=== PATIENT | female | born 1975 | race Caucasian/White ===

== ENCOUNTER 2017-02-02 17:26 | Emergency (ER) | payer MEDICARE ==
[~2017-02-02] VITALS: Ht 157.5 cm; Wt 77.3 kg
[~2017-02-02 17:26] MED LIST: ASPIRIN 32325 MG/TA1 PO; ASPIRIN 32325 MG/TAB; ATIVAN 0.50.5 MG/TAB; ATIVAN 0.50.5 MG/TAB PO; ATIVAN 1MG T1 MG/TAB PO; BIOTIN5 MG PO; CARAFATE 1GM1 G PO; CIPRO 500MG TA500 MG PO; COGENTIN .0.5 MG/TAB; CORTEF 10MG TAB10 MG PO; CORTEF 20MG TAB20 MG PO; CORTEF5 MG PO; CREON 60000 U-11 ECC PO; DIAZEPAM5 MG PO; DILAUDID 2MG TAB2 MG PO; DILAUDID 4MG TAB4 MG PO; DOXYCYCLINE 50M50 MG PO; ERY-TAB250 MG PO; FISH OIL1000 MG PO; FLAGYL500 MG PO; HALDOL 2MG T2 MG/TAB; HCTZ 25MG TAB25 MG PO; IRON325 M1 PO; L-LYSINE500 MG PO; LEVSIN ORA0.125 MG/M PO; LIDODERM 5% PATC1 EA TP; MORPHINE 1515 MG/TAB PO; MULTIPLE VITAMI1 CAP PO; MULTIVITAMIN FO1 CAP PO; NEXIUM 20MG20 MG PO; NIACIN100 MG PO; NORCO 325 MG-51 TAB PO; OXY IR5 MG PO; PAXIL 10MG10 MG PO; PAXIL 20MG20 MG; PAXIL 20MG20 MG PO; PAXIL 30MG30 MG PO; PERC2.5TAB; PERCOCET 325 MG1 TA2 PO; PERCOCET 325 MG1 TA3 PO; PERCR 7.5 PO; PHENERGAN 25 TA25 MG PO; PHENERGAN25 MG RC; PREDNISONE1 MG PO; PREDNISONE20 MG PO; PROTONIX 40MG T40 MG PO; PROTONIX20 MG PO; RITE AID BIO2500 MCG PO; SINGULAIR 110 MG/TAB PO; ULTRAM 50MG TAB50 MG PO; VALIUM 5MG T5 MG/TAB PO; VITAMIN B COMPL1 SGL PO; VITAMIN B COMPL1 T16 PO; VITAMIN B COMPL1 TA1 PO; VITAMIN D 50,1.25 MG PO; WESTCORT0.21 TP; ZANTAC 150MG T150 MG PO; ZOFRAN 4MG T4 MG/TAB PO; ZOFRAN ODT4 MG PO; ZOFRAN8 MG PO; [UNRECOGNIZED DRUG - CODE] PO
[2017-02-02 17:34] VITALS: TEMP 98.8
[2017-02-02 18:20] LABS: BASO # 0.1 (0.0-0.2); BASO % 0.9 % (0.0-2.0); EOS # 0.3 (0.0-0.7); EOS % 4.3 % (0-4.0); GRAN # 3.6 (1.4-6.5); GRAN % 53.3 % (42.2-75.2); HEMATOCRIT 37.9 % (37.0-47.0); HEMOGLOBIN 12.2 g/dl (12.5-16.0); LYMPH # 2.1 (1.2-3.4); LYMPH % 30.7 % (20.0-51.0); MEAN CELL VOLUME 83 fl (80.0-100.0); MEAN CORPUSCULAR HEMOGLOBIN 27 pg (27.0-31.0); MEAN CORPUSCULAR HGB CONC 32 g/dl (33.0-37.0); MEAN PLATELET VOLUME 10.1 fl (7.4-10.4); MONO # 0.7 (0.1-0.6); MONO % 10.5 % (1.7-9.3); PLATELET COUNT 328 K/mm3 (130-400); RED BLOOD COUNT 4.57 M/mm3 (4.10-5.30); REDCELL DISTRIBUTION WIDTH-CV 15.8 % (11.5-14.5); WHITE BLOOD COUNT 6.8 K/mm3 (4.8-10.8)
[2017-02-02 18:31] LABS: ADJUSTED CALCIUM 9.3 mg/dL (8.4-10.2); ALBUMIN 4.2 gm/dL (3.5-5.0); BILIRUBIN,TOTAL 0.6 mg/dL (0.0-1.0); CALCIUM 9.5 mg/dL (8.4-10.2); CREATININE, serum 0.78 mg/dL (0.52-1.25); POTASSIUM 3.9 mmol/L (3.4-5.0); TOTAL PROTEIN 7.7 gm/dL (6.4-8.2)
[2017-02-02] MEDS ORDERED: CREON 36000 PO (18:32)
[2017-02-02] MEDS ORDERED: ATIVAN 0.50.5 MG/TAB PO (18:33)
[2017-02-02] MEDS ORDERED: ZYPREXA10 MG PO (18:33)
[2017-02-02] MEDS ORDERED: PERCOCET 325 MG1 TA2 PO (19:55)
[2017-02-02 20:02] VITALS: BP 106/62; PULSE 88
== END 2017-02-02 20:08 | disposition home or self-care (01) ==
LOC: COL.ER 17:26
PROVIDERS: Emergency Medicine
DX: R10.13 Epigastric pain (principal); G89.29 Other chronic pain
CPT/HCPCS: J2765; J3010; J7030

== ENCOUNTER 2017-02-24 18:56 | Emergency (ER) | payer MEDICARE ==
[~2017-02-24] VITALS: Ht 157.5 cm; Wt 77.3 kg
[~2017-02-24 18:56] MED LIST changes: +CREON 36000 PO; +ZYPREXA10 MG PO
[2017-02-24 18:58] VITALS: BP 125/68; PULSE 102; TEMP 99.5
== END 2017-02-24 20:09 | disposition left against medical advice (07) ==
LOC: COL.ER 18:56
DX: R10.12 Left upper quadrant pain (principal); Z53.21 Procedure and treatment not carried out due to patient leaving prior to being seen by health care provider

== ENCOUNTER 2017-03-09 14:50 | Emergency (ER) | payer MEDICARE ==
[~2017-03-09] VITALS: Ht 157.5 cm; Wt 77.3 kg
[2017-03-09 14:55] VITALS: TEMP 99.2
[2017-03-09 15:37] LABS: BASO # 0.1 (0.0-0.2); BASO % 1.1 % (0.0-2.0); EOS # 0.1 (0.0-0.7); EOS % 1.3 % (0-4.0); GRAN # 5.2 (1.4-6.5); GRAN % 66.2 % (42.2-75.2); HEMATOCRIT 41.1 % (37.0-47.0); HEMOGLOBIN 13.1 g/dl (12.5-16.0); LYMPH # 1.9 (1.2-3.4); LYMPH % 24.4 % (20.0-51.0); MEAN CELL VOLUME 84 fl (80.0-100.0); MEAN CORPUSCULAR HEMOGLOBIN 27 pg (27.0-31.0); MEAN CORPUSCULAR HGB CONC 32 g/dl (33.0-37.0); MEAN PLATELET VOLUME 10.5 fl (7.4-10.4); MONO # 0.5 (0.1-0.6); MONO % 6.9 % (1.7-9.3); PLATELET COUNT 299 K/mm3 (130-400); RED BLOOD COUNT 4.87 M/mm3 (4.10-5.30); REDCELL DISTRIBUTION WIDTH-CV 15.5 % (11.5-14.5); WHITE BLOOD COUNT 7.9 K/mm3 (4.8-10.8)
[2017-03-09 15:47] LABS: ALBUMIN 4.8 gm/dL (3.5-5.0); BILIRUBIN,TOTAL 0.7 mg/dL (0.0-1.0); CALCIUM 9.6 mg/dL (8.4-10.2); CREATININE, serum 0.89 mg/dL (0.52-1.25); POTASSIUM 3.9 mmol/L (3.4-5.0); TOTAL PROTEIN 8.3 gm/dL (6.4-8.2)
[2017-03-09 15:52] LABS: PH 5 (5-8); SQUAMOUS EPITHELIAL 0-2 /hpf; URINE APPEARANCE Cloudy; URINE BACTERIA Rare /hpf; URINE BILIRUBIN Negative (NEGATIVE); URINE BLOOD Negative (NEGATIVE); URINE COLOR Amber; URINE GLUCOSE Negative (NEGATIVE); URINE KETONE Negative (NEGATIVE); URINE UROBILINOGEN Negative (NEGATIVE); URINE WBC 0-2 /hpf
[2017-03-09] MEDS ORDERED: NORCO 325 MG-51 TAB PO (16:24)
[2017-03-09] MEDS ORDERED: PHENERGAN 25 TA25 MG PO (16:24)
[2017-03-09 17:05] VITALS: BP 118/78; PULSE 89
== END 2017-03-09 17:05 | disposition home or self-care (01) ==
LOC: COL.ER 14:50
PROVIDERS: Physician Assistant
DX: K86.1 Other chronic pancreatitis (principal); F32.9 Major depressive disorder, single episode, unspecified; R79.89 Other specified abnormal findings of blood chemistry; R11.0 Nausea
CPT/HCPCS: J2270; J2550; J7030

== ENCOUNTER 2017-03-22 08:38 | Emergency (ER) | payer MEDICARE ==
[~2017-03-22] VITALS: Ht 157.5 cm; Wt 77.3 kg
[2017-03-22 08:42] VITALS: TEMP 99.2
[2017-03-22 09:28] LABS: ALANINE AMINOTRANSFERASE 87 U/L (9-52); ALBUMIN 4.5 gm/dL (3.5-5.0); ALKALINE PHOSPHATASE 143 U/L (50-136); AMYLASE 88 U/L (30-110); ANION GAP 13 mmol/L (7-16); BILIRUBIN,TOTAL 0.5 mg/dL (0.0-1.0); BLOOD UREA NITROGEN 12 mg/dL (7-17); CALCIUM 9.4 mg/dL (8.4-10.2); CARBON DIOXIDE 23 mmol/L (22-30); CHLORIDE 106 mmol/L (98-107); CREATININE, serum 0.87 mg/dL (0.52-1.25); GLUCOSE 98 mg/dL (74-106); LIPASE 46 U/L (23-300); POTASSIUM 3.9 mmol/L (3.4-5.0); SODIUM 141 mmol/L (137-145); TOTAL PROTEIN 7.7 gm/dL (6.4-8.2)
[2017-03-22 09:29] LABS: C-REACTIVE PROTEIN < 0.5 mg/dL (0.0-0.9)
[2017-03-22 09:33] LABS: BASO # 0.1 (0.0-0.2); BASO % 1.1 % (0.0-2.0); EOS # 0.2 (0.0-0.7); EOS % 2.3 % (0-4.0); GRAN # 4.3 (1.4-6.5); GRAN % 65.3 % (42.2-75.2); HEMOGLOBIN 12.8 g/dl (12.5-16.0); LYMPH # 1.6 (1.2-3.4); MEAN CELL VOLUME 86 fl (80.0-100.0); MEAN CORPUSCULAR HEMOGLOBIN 27 pg (27.0-31.0); MEAN CORPUSCULAR HGB CONC 32 g/dl (33.0-37.0); MEAN PLATELET VOLUME 11.4 fl (7.4-10.4); MONO # 0.4 (0.1-0.6); PLATELET COUNT 288 K/mm3 (130-400); RED BLOOD COUNT 4.67 M/mm3 (4.10-5.30); REDCELL DISTRIBUTION WIDTH-CV 15.6 % (11.5-14.5); WHITE BLOOD COUNT 6.5 K/mm3 (4.8-10.8)
[2017-03-22 09:48] LABS: ACETAMINOPHEN < 10 ug/mL (10-30)
[2017-03-22] MEDS ORDERED: NORCO 325 MG-51 TAB PO (10:28)
[2017-03-22 11:23] VITALS: BP 107/48; PULSE 66
== END 2017-03-22 11:25 | disposition home or self-care (01) ==
LOC: COL.ER 08:38
PROVIDERS: Physician Assistant
DX: K86.1 Other chronic pancreatitis (principal)
CPT/HCPCS: J2270; J2405; J7030

== ENCOUNTER 2017-08-18 04:13 | Emergency (ER) | payer MEDICARE ==
[~2017-08-18] VITALS: Ht 160 cm; Wt 80.9 kg
[2017-08-18 06:02] LABS: BASO # 0.1 (0.0-0.2); BASO % 1.4 % (0.0-2.0); EOS # 0.1 (0.0-0.7); EOS % 2.2 % (0-4.0); GRAN # 3.2 (1.4-6.5); GRAN % 54.2 % (42.2-75.2); HEMATOCRIT 39.5 % (37.0-47.0); LYMPH % 33.6 % (20.0-51.0); MEAN CELL VOLUME 87 fl (80.0-100.0); MEAN CORPUSCULAR HEMOGLOBIN 29 pg (27.0-31.0); MEAN CORPUSCULAR HGB CONC 33 g/dl (33.0-37.0); MEAN PLATELET VOLUME 11.6 fl (7.4-10.4); MONO # 0.5 (0.1-0.6); MONO % 8.4 % (1.7-9.3); PLATELET COUNT 275 K/mm3 (130-400); RED BLOOD COUNT 4.52 M/mm3 (4.10-5.30); REDCELL DISTRIBUTION WIDTH-CV 13.2 % (11.5-14.5); WHITE BLOOD COUNT 5.8 K/mm3 (4.8-10.8)
[2017-08-18 06:11] LABS: ADJUSTED CALCIUM 8.9 mg/dL (8.4-10.2); ALBUMIN 4.5 gm/dL (3.5-5.0); BILIRUBIN,TOTAL 0.7 mg/dL (0.0-1.0); CALCIUM 9.3 mg/dL (8.4-10.2); CREATININE, serum 0.81 mg/dL (0.52-1.25); POTASSIUM 3.6 mmol/L (3.4-5.0); TOTAL PROTEIN 8.1 gm/dL (6.4-8.2)
[2017-08-18 06:59] LABS: PH 6 (5-8); SQUAMOUS EPITHELIAL None Seen /hpf; URINE APPEARANCE Clear; URINE BACTERIA None Seen /hpf; URINE BILIRUBIN Negative (NEGATIVE); URINE BLOOD 1+ (NEGATIVE); URINE COLOR Colorless; URINE GLUCOSE Negative (NEGATIVE); URINE KETONE Negative (NEGATIVE); URINE RBC 0-2 /hpf; URINE UROBILINOGEN Negative (NEGATIVE); URINE WBC 0-2 /hpf
[2017-08-18] MEDS ORDERED: NORCO 325 MG-51 TAB PO (07:30)
[2017-08-18] MEDS ORDERED: PHENERGAN 25 TA25 MG PO (07:30)
[2017-08-18] MEDS ORDERED: PHENERGAN25 MG RC (09:20)
[2017-08-18] MEDS ORDERED: ZOFRAN ODT4 MG PO (09:20)
[2017-08-18] MEDS ORDERED: PERCOCET 325 MG1 TA2 PO (09:30)
[2017-08-18 09:42] VITALS: BP 101/59; PULSE 59
== END 2017-08-18 09:42 | disposition home or self-care (01) ==
LOC: COL.ER 04:13
PROVIDERS: Emergency Medicine
DX: K86.1 Other chronic pancreatitis (principal); Z90.49 Acquired absence of other specified parts of digestive tract
CPT/HCPCS: J1170; J2550; J7030

== ENCOUNTER 2017-08-28 18:55 | Emergency (ER) | payer MEDICARE ==
[~2017-08-28] VITALS: Ht 157.5 cm; Wt 70.5 kg
[2017-08-28 18:58] VITALS: TEMP 99
[2017-08-28 19:45] LABS: BASO # 0.1 (0.0-0.2); BASO % 1.2 % (0.0-2.0); EOS # 0.1 (0.0-0.7); EOS % 1.4 % (0-4.0); GRAN # 3.1 (1.4-6.5); GRAN % 54.2 % (42.2-75.2); HEMATOCRIT 39.8 % (37.0-47.0); HEMOGLOBIN 13.1 g/dl (12.5-16.0); LYMPH # 1.8 (1.2-3.4); LYMPH % 31.7 % (20.0-51.0); MEAN CELL VOLUME 88 fl (80.0-100.0); MEAN CORPUSCULAR HEMOGLOBIN 29 pg (27.0-31.0); MEAN CORPUSCULAR HGB CONC 33 g/dl (33.0-37.0); MEAN PLATELET VOLUME 11.3 fl (7.4-10.4); MONO # 0.6 (0.1-0.6); MONO % 11.3 % (1.7-9.3); PLATELET COUNT 294 K/mm3 (130-400); WHITE BLOOD COUNT 5.7 K/mm3 (4.8-10.8)
[2017-08-28 19:59] LABS: COLLECTION METHOD CLEAN CATCH
[2017-08-28 20:03] LABS: ADJUSTED CALCIUM 9.3 mg/dL (8.4-10.2); ALANINE AMINOTRANSFERASE 49 U/L (9-52); ALBUMIN 4.6 gm/dL (3.5-5.0); ALKALINE PHOSPHATASE 132 U/L (50-136); ANION GAP 12 mmol/L (7-16); BILIRUBIN,TOTAL 1.1 mg/dL (0.0-1.0); BLOOD UREA NITROGEN 8 mg/dL (7-17); CALCIUM 9.8 mg/dL (8.4-10.2); CARBON DIOXIDE 22 mmol/L (22-30); CHLORIDE 105 mmol/L (98-107); CREATININE, serum 0.83 mg/dL (0.52-1.25); GLUCOSE 86 mg/dL (74-106); LIPASE 181 U/L (23-300); POTASSIUM 3.8 mmol/L (3.4-5.0); SODIUM 139 mmol/L (137-145)
[2017-08-28 20:04] LABS: MUCOUS Present /lpf; PH 5 (5-8); URINE APPEARANCE Clear; URINE BACTERIA None Seen /hpf; URINE BILIRUBIN Negative (NEGATIVE); URINE BLOOD Negative (NEGATIVE); URINE COLOR Yellow; URINE GLUCOSE Negative (NEGATIVE); URINE KETONE Trace (NEGATIVE); URINE LEUKOCYTE ESTERASE Negative (NEGATIVE); URINE PROTEIN(semi-quant) Negative (NEGATIVE); URINE RBC 0-2 /hpf; URINE UROBILINOGEN Negative (NEGATIVE)
[2017-08-28 20:32] LABS: AMPHETAMINE URINE NEGATIVE; BARBITURATES URINE NEGATIVE; BENZODIAZEPINES URINE NEGATIVE; BUPRENORPHINE URINE NEGATIVE; METHADONE URINE NEGATIVE; OPIATES URINE NEGATIVE; OXYCODONE URINE NEGATIVE; PHENCYCLIDINE URINE NEGATIVE; PROPOXYPHENE URINE NEGATIVE; THC CANNABINOIDS URINE POSITIVE; TRICYCLIC ANTIDEPRESS URINE NEGATIVE
[2017-08-28 20:33] LABS: ACETAMINOPHEN < 10 ug/mL (10-30); ALCOHOL(ethanol),MEDICAL < 10 mg/dL
[2017-08-28 23:49] VITALS: BP 101/52; PULSE 66
== END 2017-08-28 23:50 | disposition home or self-care (01) ==
LOC: COL.ER 18:55
PROVIDERS: Emergency Medicine
DX: F22 Delusional disorders (principal); R10.12 Left upper quadrant pain; F31.9 Bipolar disorder, unspecified; F43.10 Post-traumatic stress disorder, unspecified; F29 Unspecified psychosis not due to a substance or known physiological condition; Z87.19 Personal history of other diseases of the digestive system
CPT/HCPCS: J1885; J2405; J7030

== ENCOUNTER 2017-08-30 02:26 | Observation (INO) | payer MEDICARE ==
[~2017-08-30] VITALS: Ht 157.5 cm; Wt 71.4 kg
[2017-08-30 02:58] LABS: PH 6 (5-8); SQUAMOUS EPITHELIAL 0-2 /hpf; URINE APPEARANCE Clear; URINE BACTERIA None Seen /hpf; URINE BILIRUBIN Negative (NEGATIVE); URINE BLOOD 1+ (NEGATIVE); URINE COLOR Straw; URINE GLUCOSE Negative (NEGATIVE); URINE KETONE Negative (NEGATIVE); URINE RBC 0-2 /hpf; URINE UROBILINOGEN Negative (NEGATIVE); URINE WBC 0-2 /hpf
[2017-08-30 03:06] LABS: AMPHETAMINE URINE NEGATIVE; BARBITURATES URINE NEGATIVE; BENZODIAZEPINES URINE NEGATIVE; BUPRENORPHINE URINE NEGATIVE; METHADONE URINE NEGATIVE; OPIATES URINE NEGATIVE; OXYCODONE URINE NEGATIVE; PHENCYCLIDINE URINE NEGATIVE; PROPOXYPHENE URINE NEGATIVE; THC CANNABINOIDS URINE POSITIVE
[2017-08-30 03:09] LABS: BASO # 0.1 (0.0-0.2); BASO % 1.2 % (0.0-2.0); EOS # 0.1 (0.0-0.7); EOS % 1.6 % (0-4.0); GRAN # 2.3 (1.4-6.5); GRAN % 52.3 % (42.2-75.2); HEMATOCRIT 39.4 % (37.0-47.0); HEMOGLOBIN 12.8 g/dl (12.5-16.0); LYMPH # 1.3 (1.2-3.4); LYMPH % 29.2 % (20.0-51.0); MEAN CELL VOLUME 89 fl (80.0-100.0); MEAN CORPUSCULAR HEMOGLOBIN 29 pg (27.0-31.0); MEAN CORPUSCULAR HGB CONC 33 g/dl (33.0-37.0); MEAN PLATELET VOLUME 11.2 fl (7.4-10.4); MONO # 0.7 (0.1-0.6); MONO % 15.5 % (1.7-9.3); PLATELET COUNT 287 K/mm3 (130-400); RED BLOOD COUNT 4.43 M/mm3 (4.10-5.30); WHITE BLOOD COUNT 4.3 K/mm3 (4.8-10.8)
[2017-08-30 03:19] LABS: ADJUSTED CALCIUM 8.7 mg/dL (8.4-10.2); ALANINE AMINOTRANSFERASE 46 U/L (9-52); ALBUMIN 4.2 gm/dL (3.5-5.0); ALKALINE PHOSPHATASE 116 U/L (50-136); ANION GAP 11 mmol/L (7-16); BILIRUBIN,TOTAL 0.7 mg/dL (0.0-1.0); BLOOD UREA NITROGEN 6 mg/dL (7-17); CALCIUM 8.9 mg/dL (8.4-10.2); CARBON DIOXIDE 22 mmol/L (22-30); CHLORIDE 108 mmol/L (98-107); CREATININE, serum 0.78 mg/dL (0.52-1.25); GLUCOSE 95 mg/dL (74-106); POTASSIUM 3.4 mmol/L (3.4-5.0); SODIUM 141 mmol/L (137-145); TOTAL PROTEIN 7.3 gm/dL (6.4-8.2)
[2017-08-30 03:22] LABS: ACETAMINOPHEN < 10 ug/mL (10-30); SALICYLATE < 1.0 mg/dL
[2017-08-30 15:46] VITALS: PULSE 51; TEMP 97.8
[2017-08-30 16:00] VITALS: PULSE 51
[2017-08-30 20:00] VITALS: BP 109/71; PULSE 74; TEMP 98.1
[2017-08-31] VITALS (124 sets, daily range): BP systolic 92; BP diastolic 62; PULSE 55–90; TEMP 98.2–98.7; O2SAT 71–100
== END 2017-08-31 15:40 ==
LOC: COL.ER 02:26 → ICU 12:45
PROVIDERS: Emergency Medicine
DX: F31.9 Bipolar disorder, unspecified (principal); K86.1 Other chronic pancreatitis
CPT/HCPCS: 90791-AI; G0378

== ENCOUNTER 2017-09-11 21:00 | Emergency (ER) | payer MEDICARE ==
[~2017-09-11] VITALS: Ht 157.5 cm; Wt 72.7 kg
[2017-09-11 21:01] VITALS: TEMP 99.3
[2017-09-11 21:41] LABS: BASO # 0.1 (0.0-0.2); BASO % 1.3 % (0.0-2.0); EOS # 0.1 (0.0-0.7); EOS % 1.4 % (0-4.0); GRAN # 3.4 (1.4-6.5); GRAN % 49.4 % (42.2-75.2); HEMATOCRIT 38.5 % (37.0-47.0); HEMOGLOBIN 12.6 g/dl (12.5-16.0); LYMPH # 2.7 (1.2-3.4); LYMPH % 39.2 % (20.0-51.0); MEAN CELL VOLUME 88 fl (80.0-100.0); MEAN CORPUSCULAR HEMOGLOBIN 29 pg (27.0-31.0); MEAN CORPUSCULAR HGB CONC 33 g/dl (33.0-37.0); MEAN PLATELET VOLUME 11.6 fl (7.4-10.4); MONO # 0.6 (0.1-0.6); MONO % 8.4 % (1.7-9.3); PLATELET COUNT 267 K/mm3 (130-400); RED BLOOD COUNT 4.39 M/mm3 (4.10-5.30); WHITE BLOOD COUNT 6.9 K/mm3 (4.8-10.8)
[2017-09-11] MEDS ORDERED: MULTIPLE VITAMI1 CAP PO (21:45)
[2017-09-11] MEDS ORDERED: ABILIFY 10MG TA10 MG PO (21:45)
[2017-09-11] MEDS ORDERED: SINGULAIR 110 MG/TAB PO (21:46)
[2017-09-11] MEDS ORDERED: PRILOSEC 20MG20 MG PO (21:46)
[2017-09-11] MEDS ORDERED: PAXIL 20MG20 MG PO (21:47)
[2017-09-11 21:55] LABS: ADJUSTED CALCIUM 8.8 mg/dL (8.4-10.2); ALANINE AMINOTRANSFERASE 40 U/L (9-52); ALBUMIN 4.3 gm/dL (3.5-5.0); ALKALINE PHOSPHATASE 96 U/L (50-136); ANION GAP 10 mmol/L (7-16); BILIRUBIN,TOTAL 0.6 mg/dL (0.0-1.0); BLOOD UREA NITROGEN 8 mg/dL (7-17); CARBON DIOXIDE 25 mmol/L (22-30); CHLORIDE 105 mmol/L (98-107); CREATININE, serum 0.82 mg/dL (0.52-1.25); GLUCOSE 99 mg/dL (74-106); LIPASE 38 U/L (23-300); POTASSIUM 3.7 mmol/L (3.4-5.0); SODIUM 140 mmol/L (137-145); TOTAL PROTEIN 7.4 gm/dL (6.4-8.2)
[2017-09-11 21:56] LABS: C-REACTIVE PROTEIN < 0.5 mg/dL (0.0-0.9)
[2017-09-11 22:22] LABS: COLLECTION METHOD CLEAN CATCH
[2017-09-11 22:31] LABS: PH 6 (5-8); SQUAMOUS EPITHELIAL 0-2 /hpf; URINE APPEARANCE Clear; URINE BACTERIA None Seen /hpf; URINE BILIRUBIN Negative (NEGATIVE); URINE BLOOD Negative (NEGATIVE); URINE COLOR Straw; URINE GLUCOSE Negative (NEGATIVE); URINE KETONE Negative (NEGATIVE); URINE LEUKOCYTE ESTERASE Trace (NEGATIVE); URINE PROTEIN(semi-quant) Negative (NEGATIVE); URINE RBC None Seen /hpf; URINE UROBILINOGEN Negative (NEGATIVE); URINE WBC 0-2 /hpf
[2017-09-11 23:33] VITALS: BP 97/57; PULSE 60
== END 2017-09-11 23:34 | disposition home or self-care (01) ==
LOC: COL.ER 21:00
PROVIDERS: Family Medicine
DX: K12.1 Other forms of stomatitis (principal); F17.210 Nicotine dependence, cigarettes, uncomplicated; Z87.19 Personal history of other diseases of the digestive system
CPT/HCPCS: J1630; J2550; J7030

== ENCOUNTER 2017-09-15 16:47 | Emergency (ER) | payer MEDICARE ==
[~2017-09-15] VITALS: Ht 160 cm; Wt 72.7 kg
[~2017-09-15 16:47] MED LIST changes: +ABILIFY 10MG TA10 MG PO; +PRILOSEC 20MG20 MG PO
[2017-09-15 16:53] VITALS: TEMP 98.4
[2017-09-15 17:31] LABS: COLLECTION METHOD CLEAN CATCH
[2017-09-15 17:36] LABS: MUCOUS Present /lpf; PH 5 (5-8); SQUAMOUS EPITHELIAL None Seen /hpf; URINE APPEARANCE Clear; URINE BACTERIA None Seen /hpf; URINE BILIRUBIN Negative (NEGATIVE); URINE BLOOD 1+ (NEGATIVE); URINE COLOR Straw; URINE GLUCOSE Negative (NEGATIVE); URINE KETONE Negative (NEGATIVE); URINE LEUKOCYTE ESTERASE Negative (NEGATIVE); URINE PROTEIN(semi-quant) Negative (NEGATIVE); URINE RBC 0-2 /hpf; URINE UROBILINOGEN Negative (NEGATIVE); URINE WBC 0-2 /hpf
[2017-09-15 19:51] LABS: BASO # 0.1 (0.0-0.2); EOS # 0.2 (0.0-0.7); EOS % 2.6 % (0-4.0); GRAN # 3.3 (1.4-6.5); GRAN % 53.4 % (42.2-75.2); HEMATOCRIT 37.8 % (37.0-47.0); HEMOGLOBIN 12.4 g/dl (12.5-16.0); LYMPH % 32.8 % (20.0-51.0); MEAN CELL VOLUME 88 fl (80.0-100.0); MEAN CORPUSCULAR HEMOGLOBIN 29 pg (27.0-31.0); MEAN CORPUSCULAR HGB CONC 33 g/dl (33.0-37.0); MEAN PLATELET VOLUME 11.1 fl (7.4-10.4); MONO # 0.6 (0.1-0.6); PLATELET COUNT 264 K/mm3 (130-400); RED BLOOD COUNT 4.28 M/mm3 (4.10-5.30); WHITE BLOOD COUNT 6.1 K/mm3 (4.8-10.8)
[2017-09-15 19:53] LABS: ALBUMIN 4.3 gm/dL (3.5-5.0); BILIRUBIN,TOTAL 0.6 mg/dL (0.0-1.0); CALCIUM 9.2 mg/dL (8.4-10.2); CREATININE, serum 0.8 mg/dL (0.52-1.25); POTASSIUM 3.8 mmol/L (3.4-5.0); TOTAL PROTEIN 7.4 gm/dL (6.4-8.2)
[2017-09-15] MEDS ORDERED: B COMPLEX #11 TAB (20:38)
[2017-09-15] MEDS ORDERED: L-LYSINE500 M1 (20:39)
[2017-09-15] MEDS ORDERED: VITAMIND3 5000 (20:39)
[2017-09-15 21:06] VITALS: BP 117/61; PULSE 76
== END 2017-09-15 21:13 | disposition home or self-care (01) ==
LOC: COL.ER 16:47
PROVIDERS: Emergency Medicine
DX: R10.12 Left upper quadrant pain (principal); R10.13 Epigastric pain; Z32.02 Encounter for pregnancy test, result negative; Z90.49 Acquired absence of other specified parts of digestive tract; Z90.710 Acquired absence of both cervix and uterus
CPT/HCPCS: J1170; J2550; J7030

== ENCOUNTER 2017-10-15 05:51 | Emergency (ER) | payer MEDICARE, OTHER ==
[~2017-10-15] VITALS: Ht 160 cm; Wt 70.5 kg
[~2017-10-15 05:51] MED LIST changes: +B COMPLEX #11 TAB; +L-LYSINE500 M1; +VITAMIND3 5000
[2017-10-15 05:57] VITALS: BP 113/55; TEMP 98.9
[2017-10-15] MEDS ORDERED: PAXIL40 MG PO (06:36)
[2017-10-15] MEDS ORDERED: ABILIFY5 MG PO (06:36)
[2017-10-15 07:37] VITALS: PULSE 80
== END 2017-10-15 07:37 | disposition home or self-care (01) ==
LOC: COL.ER 05:51
DX: Z76.0 Encounter for issue of repeat prescription (principal); F31.9 Bipolar disorder, unspecified

== ENCOUNTER 2017-11-01 15:06 | Emergency (ER) | payer MEDICARE, OTHER ==
[~2017-11-01] VITALS: Ht 160 cm; Wt 72.7 kg
[~2017-11-01 15:06] MED LIST changes: +ABILIFY5 MG PO; +PAXIL40 MG PO
[2017-11-01 15:10] VITALS: BP 120/71; TEMP 99
[2017-11-01 15:55] LABS: BASO # 0.1 (0.0-0.2); BASO % 0.8 % (0.0-2.0); EOS # 0.2 (0.0-0.7); EOS % 2.2 % (0-4.0); GRAN # 6.3 (1.4-6.5); GRAN % 59.1 % (42.2-75.2); HEMATOCRIT 39.6 % (37.0-47.0); HEMOGLOBIN 12.7 g/dl (12.5-16.0); LYMPH # 3.3 (1.2-3.4); LYMPH % 31.1 % (20.0-51.0); MEAN CELL VOLUME 88 fl (80.0-100.0); MEAN CORPUSCULAR HEMOGLOBIN 28 pg (27.0-31.0); MEAN CORPUSCULAR HGB CONC 32 g/dl (33.0-37.0); MEAN PLATELET VOLUME 11.5 fl (7.4-10.4); MONO # 0.7 (0.1-0.6); MONO % 6.5 % (1.7-9.3); PLATELET COUNT 279 K/mm3 (130-400); WHITE BLOOD COUNT 10.6 K/mm3 (4.8-10.8)
[2017-11-01 16:00] LABS: COLLECTION METHOD CLEAN CATCH
[2017-11-01 16:07] LABS: ADJUSTED CALCIUM 8.2 mg/dL (8.4-10.2); ALANINE AMINOTRANSFERASE 105 U/L (9-52); ALBUMIN 4.6 gm/dL (3.5-5.0); ALKALINE PHOSPHATASE 146 U/L (50-136); AMYLASE 101 U/L (30-110); ANION GAP 12 mmol/L (7-16); BILIRUBIN,TOTAL 0.4 mg/dL (0.0-1.0); BLOOD UREA NITROGEN 15 mg/dL (7-17); C-REACTIVE PROTEIN < 0.5 mg/dL (0.0-0.9); CALCIUM 8.7 mg/dL (8.4-10.2); CARBON DIOXIDE 24 mmol/L (22-30); CHLORIDE 105 mmol/L (98-107); CREATININE, serum 0.98 mg/dL (0.52-1.25); GLUCOSE 94 mg/dL (74-106); LIPASE 75 U/L (23-300); SODIUM 141 mmol/L (137-145); TOTAL PROTEIN 7.8 gm/dL (6.4-8.2)
[2017-11-01 16:08] LABS: MUCOUS Present /lpf; PH 5 (5-8); SQUAMOUS EPITHELIAL 0-2 /hpf; URINE APPEARANCE Clear; URINE BACTERIA None Seen /hpf; URINE BILIRUBIN Negative (NEGATIVE); URINE BLOOD 1+ (NEGATIVE); URINE COLOR Yellow; URINE GLUCOSE Negative (NEGATIVE); URINE KETONE Negative (NEGATIVE); URINE LEUKOCYTE ESTERASE Trace (NEGATIVE); URINE PROTEIN(semi-quant) Negative (NEGATIVE); URINE RBC 0-2 /hpf; URINE UROBILINOGEN Negative (NEGATIVE)
[2017-11-01] MEDS ORDERED: ULTRAM 50MG TAB50 MG PO (17:13)
[2017-11-01 17:22] VITALS: PULSE 68
== END 2017-11-01 17:22 | disposition home or self-care (01) ==
LOC: COL.ER 15:06
PROVIDERS: Nurse Practitioner
DX: R10.32 Left lower quadrant pain (principal); R10.12 Left upper quadrant pain; F41.9 Anxiety disorder, unspecified; F17.290 Nicotine dependence, other tobacco product, uncomplicated; Z90.710 Acquired absence of both cervix and uterus
CPT/HCPCS: J1885; J2550

== ENCOUNTER 2017-12-02 10:56 | Inpatient (IN) | payer MEDICARE ==
[~2017-12-02] VITALS: Ht 162.6 cm; Wt 74.8 kg
[2017-12-02 11:45] LABS: BASO # 0.1 (0.0-0.2); BASO % 0.4 % (0.0-2.0); EOS # 0.2 (0.0-0.7); GRAN # 16.4 (1.4-6.5); GRAN % 84.7 % (42.2-75.2); HEMATOCRIT 42.7 % (37.0-47.0); HEMOGLOBIN 13.5 g/dl (12.5-16.0); LYMPH # 1.7 (1.2-3.4); LYMPH % 8.7 % (20.0-51.0); MEAN CELL VOLUME 89 fl (80.0-100.0); MEAN CORPUSCULAR HEMOGLOBIN 28 pg (27.0-31.0); MEAN CORPUSCULAR HGB CONC 32 g/dl (33.0-37.0); MEAN PLATELET VOLUME 11.3 fl (7.4-10.4); MONO # 0.9 (0.1-0.6); MONO % 4.8 % (1.7-9.3); PLATELET COUNT 263 K/mm3 (130-400); RED BLOOD COUNT 4.78 M/mm3 (4.10-5.30); REDCELL DISTRIBUTION WIDTH-CV 15.6 % (11.5-14.5)
[2017-12-02 11:57] LABS: ALANINE AMINOTRANSFERASE 61 U/L (9-52); ALBUMIN 4.9 gm/dL (3.5-5.0); ALKALINE PHOSPHATASE 139 U/L (50-136); ANION GAP 10 mmol/L (7-16); AST,SGOT 33 U/L (15-37); BILIRUBIN,TOTAL 0.4 mg/dL (0.0-1.0); BLOOD UREA NITROGEN 11 mg/dL (7-17); CALCIUM 9.3 mg/dL (8.4-10.2); CARBON DIOXIDE 20 mmol/L (22-30); CHLORIDE 111 mmol/L (98-107); CREATININE, serum 0.83 mg/dL (0.52-1.25); GLUCOSE 108 mg/dL (74-106); POTASSIUM 3.8 mmol/L (3.4-5.0); SODIUM 141 mmol/L (137-145); TOTAL PROTEIN 8.2 gm/dL (6.4-8.2)
[2017-12-02 11:59] LABS: C-REACTIVE PROTEIN < 0.5 mg/dL (0.0-0.9)
[2017-12-02 13:02] LABS: LIPASE 23134 U/L (23-300)
[2017-12-02 15:51] LABS: COLLECTION METHOD CLEAN CATCH
[2017-12-02 15:59] LABS: MUCOUS Present /lpf; PH 5 (5-8); SQUAMOUS EPITHELIAL 0-2 /hpf; URINE APPEARANCE Clear; URINE BACTERIA Rare /hpf; URINE BILIRUBIN Negative (NEGATIVE); URINE BLOOD Negative (NEGATIVE); URINE COLOR Yellow; URINE GLUCOSE Negative (NEGATIVE); URINE KETONE Negative (NEGATIVE); URINE LEUKOCYTE ESTERASE Negative (NEGATIVE); URINE NITRATE Negative (NEGATIVE); URINE PROTEIN(semi-quant) Negative (NEGATIVE); URINE RBC 0-2 /hpf; URINE UROBILINOGEN Negative (NEGATIVE)
[2017-12-02 17:04] VITALS: BP 94/55; PULSE 77; TEMP 97.7
[2017-12-02 19:28] VITALS: BP 100/48; PULSE 66; TEMP 98.8
[2017-12-02 23:45] VITALS: BP 100/55; PULSE 49; TEMP 98.4
[2017-12-03] VITALS (13 sets, daily range): BP systolic 84–109; BP diastolic 42–59; PULSE 45–72; TEMP 98.2–98.7
[2017-12-03 07:29] LABS: BASO % 0.1 % (0.0-2.0); GRAN # 19.6 (1.4-6.5); GRAN % 88.7 % (42.2-75.2); LYMPH # 1.2 (1.2-3.4); LYMPH % 5.3 % (20.0-51.0); MEAN CELL VOLUME 88 fl (80.0-100.0); MEAN CORPUSCULAR HGB CONC 32 g/dl (33.0-37.0); MEAN PLATELET VOLUME 12.5 fl (7.4-10.4); MONO # 1.2 (0.1-0.6); MONO % 5.3 % (1.7-9.3); PLATELET COUNT 215 K/mm3 (130-400); RED BLOOD COUNT 3.91 M/mm3 (4.10-5.30); REDCELL DISTRIBUTION WIDTH-CV 15.8 % (11.5-14.5)
[2017-12-03 07:41] LABS: HEMATOCRIT 34.5 % (37.0-47.0); HEMOGLOBIN 11.1 g/dl (12.5-16.0); MEAN CORPUSCULAR HEMOGLOBIN 28 pg (27.0-31.0)
[2017-12-03 07:43] LABS: ALBUMIN 3.6 gm/dL (3.5-5.0); BILIRUBIN,TOTAL 0.9 mg/dL (0.0-1.0); CALCIUM 8.5 mg/dL (8.4-10.2); CREATININE, serum 0.64 mg/dL (0.52-1.25); TOTAL PROTEIN 6.8 gm/dL (6.4-8.2)
[2017-12-03 08:03] LABS: BILIRUBIN UNCONJUGATED 0.5 mg/dL (0.0-1.1); BILIRUBIN,DIRECT 0.2 mg/dL (0.0-0.4)
[2017-12-04] VITALS (8 sets, daily range): BP systolic 89–115; BP diastolic 43–57; PULSE 60–73; TEMP 98.2–99.2
[2017-12-04 06:15] LABS: BASO % 0.4 % (0.0-2.0); EOS # 0.1 (0.0-0.7); EOS % 0.6 % (0-4.0); GRAN # 7.6 (1.4-6.5); GRAN % 71.3 % (42.2-75.2); LYMPH # 2.3 (1.2-3.4); LYMPH % 21.5 % (20.0-51.0); MEAN CELL VOLUME 89 fl (80.0-100.0); MEAN CORPUSCULAR HGB CONC 32 g/dl (33.0-37.0); MONO # 0.6 (0.1-0.6); MONO % 5.8 % (1.7-9.3); PLATELET COUNT 170 K/mm3 (130-400); RED BLOOD COUNT 3.34 M/mm3 (4.10-5.30); REDCELL DISTRIBUTION WIDTH-CV 16.2 % (11.5-14.5)
[2017-12-04 06:18] LABS: HEMATOCRIT 29.8 % (37.0-47.0); HEMOGLOBIN 9.4 g/dl (12.5-16.0); MEAN CORPUSCULAR HEMOGLOBIN 28 pg (27.0-31.0)
[2017-12-04 06:25] LABS: ALBUMIN 3.1 gm/dL (3.5-5.0); BILIRUBIN UNCONJUGATED 0.3 mg/dL (0.0-1.1); BILIRUBIN,DIRECT 0.2 mg/dL (0.0-0.4); BILIRUBIN,TOTAL 0.5 mg/dL (0.0-1.0); CALCIUM 7.8 mg/dL (8.4-10.2); CREATININE, serum 0.75 mg/dL (0.52-1.25); POTASSIUM 3.5 mmol/L (3.4-5.0); TOTAL PROTEIN 5.8 gm/dL (6.4-8.2)
[2017-12-05 03:46] VITALS: BP 117/58; PULSE 65; TEMP 98.7
[2017-12-05 06:49] LABS: BASO # 0.1 (0.0-0.2); BASO % 0.7 % (0.0-2.0); EOS # 0.2 (0.0-0.7); EOS % 1.8 % (0-4.0); GRAN % 69.2 % (42.2-75.2); LYMPH # 1.8 (1.2-3.4); LYMPH % 20.1 % (20.0-51.0); MEAN CELL VOLUME 89 fl (80.0-100.0); MEAN CORPUSCULAR HGB CONC 32 g/dl (33.0-37.0); MEAN PLATELET VOLUME 12.4 fl (7.4-10.4); MONO # 0.7 (0.1-0.6); PLATELET COUNT 199 K/mm3 (130-400); RED BLOOD COUNT 3.49 M/mm3 (4.10-5.30); REDCELL DISTRIBUTION WIDTH-CV 15.9 % (11.5-14.5)
[2017-12-05 06:50] LABS: HEMATOCRIT 30.9 % (37.0-47.0); HEMOGLOBIN 9.8 g/dl (12.5-16.0); MEAN CORPUSCULAR HEMOGLOBIN 28 pg (27.0-31.0)
[2017-12-05 07:08] LABS: ALBUMIN 3.2 gm/dL (3.5-5.0); BILIRUBIN UNCONJUGATED 0.3 mg/dL (0.0-1.1); BILIRUBIN,DIRECT 0.1 mg/dL (0.0-0.4); BILIRUBIN,TOTAL 0.4 mg/dL (0.0-1.0); CALCIUM 8.6 mg/dL (8.4-10.2); CREATININE, serum 0.69 mg/dL (0.52-1.25); POTASSIUM 3.3 mmol/L (3.4-5.0); TOTAL PROTEIN 5.9 gm/dL (6.4-8.2)
[2017-12-05 07:33] VITALS: BP 99/45; PULSE 53; TEMP 98.7
[2017-12-05 10:50] LABS: INFLUENZA A NEGATIVE; INFLUENZA B NEGATIVE
[2017-12-05 11:46] VITALS: BP 104/44; PULSE 54; TEMP 98.5
[2017-12-05 15:41] VITALS: BP 116/38; PULSE 57; TEMP 98.2
[2017-12-05 19:27] VITALS: BP 120/59; PULSE 56; TEMP 98.7
[2017-12-06] VITALS (7 sets, daily range): BP systolic 102–136; BP diastolic 53–96; PULSE 55–82; TEMP 97.9–98.9
[2017-12-06 06:49] LABS: BASO # 0.1 (0.0-0.2); BASO % 0.8 % (0.0-2.0); EOS # 0.2 (0.0-0.7); EOS % 2.7 % (0-4.0); GRAN # 3.5 (1.4-6.5); GRAN % 51.7 % (42.2-75.2); LYMPH # 2.3 (1.2-3.4); LYMPH % 34.7 % (20.0-51.0); MEAN CELL VOLUME 87 fl (80.0-100.0); MEAN CORPUSCULAR HGB CONC 32 g/dl (33.0-37.0); MEAN PLATELET VOLUME 12.1 fl (7.4-10.4); MONO # 0.6 (0.1-0.6); MONO % 9.6 % (1.7-9.3); PLATELET COUNT 231 K/mm3 (130-400); RED BLOOD COUNT 4.02 M/mm3 (4.10-5.30); REDCELL DISTRIBUTION WIDTH-CV 15.6 % (11.5-14.5)
[2017-12-06 06:57] LABS: CALCIUM 9.1 mg/dL (8.4-10.2); CREATININE, serum 0.76 mg/dL (0.52-1.25); POTASSIUM 3.5 mmol/L (3.4-5.0)
[2017-12-06 07:13] LABS: HEMATOCRIT 35.1 % (37.0-47.0); HEMOGLOBIN 11.3 g/dl (12.5-16.0); MEAN CORPUSCULAR HEMOGLOBIN 28 pg (27.0-31.0)
[2017-12-06] MEDS ORDERED: CREON 36000 PO (14:26)
[2017-12-07 03:55] VITALS: BP 114/67; PULSE 54; TEMP 98
[2017-12-07 06:49] LABS: BASO # 0.1 (0.0-0.2); EOS # 0.3 (0.0-0.7); EOS % 4.4 % (0-4.0); GRAN # 3.2 (1.4-6.5); GRAN % 51.8 % (42.2-75.2); LYMPH % 32.7 % (20.0-51.0); MEAN CELL VOLUME 87 fl (80.0-100.0); MEAN CORPUSCULAR HGB CONC 33 g/dl (33.0-37.0); MEAN PLATELET VOLUME 11.9 fl (7.4-10.4); MONO # 0.6 (0.1-0.6); MONO % 9.6 % (1.7-9.3); PLATELET COUNT 254 K/mm3 (130-400); REDCELL DISTRIBUTION WIDTH-CV 15.6 % (11.5-14.5)
[2017-12-07 07:01] LABS: HEMATOCRIT 32.2 % (37.0-47.0); HEMOGLOBIN 10.5 g/dl (12.5-16.0); MEAN CORPUSCULAR HEMOGLOBIN 28 pg (27.0-31.0)
[2017-12-07 07:04] LABS: CALCIUM 8.8 mg/dL (8.4-10.2); CREATININE, serum 0.76 mg/dL (0.52-1.25); MAGNESIUM 1.9 mg/dL (1.6-2.3); POTASSIUM 3.3 mmol/L (3.4-5.0)
[2017-12-07 07:37] VITALS: BP 101/48; PULSE 90; TEMP 99.3
[2017-12-07 12:56] VITALS: BP 111/55; PULSE 60; TEMP 98
[2017-12-07 15:06] VITALS: BP 126/59; PULSE 80; TEMP 99
[2017-12-07 19:17] VITALS: BP 137/72; PULSE 73; TEMP 98.3
[2017-12-07 23:09] VITALS: BP 128/69; PULSE 67; TEMP 98.6
[2017-12-08 05:47] VITALS: BP 105/52; PULSE 56; TEMP 97.8
[2017-12-08 07:44] LABS: CALCIUM 9.1 mg/dL (8.4-10.2); CREATININE, serum 0.8 mg/dL (0.52-1.25); POTASSIUM 3.5 mmol/L (3.4-5.0)
[2017-12-08 08:40] VITALS: BP 107/46; PULSE 55; TEMP 97.9
[2017-12-08] MEDS ORDERED: SINGULAIR 110 MG/TAB PO (09:41)
[2017-12-08] MEDS ORDERED: NORCO 325 MG-101 TAB PO (09:41)
[2017-12-08] MEDS ORDERED: ZOFRAN ODT4 MG PO (09:43)
[2017-12-08] MEDS ORDERED: CREON 36000 PO (09:43)
== END 2017-12-08 12:30 | disposition home or self-care (01) | DRG 438 ==
LOC: COL.ER 10:56 → PEDS 15:37 → MEDICAL 15:37
PROVIDERS: Family Medicine; Internal Medicine; Nurse Practitioner; Physician Assistant
DX: K85.90 Acute pancreatitis without necrosis or infection, unspecified (principal); J18.9 Pneumonia, unspecified organism; K86.1 Other chronic pancreatitis; E86.0 Dehydration; Z87.891 Personal history of nicotine dependence; E87.6 Hypokalemia
CPT/HCPCS: 99222-AI; 99232-AI; 99233-AI; 99239; A9284; C9113; J0696; J1170; J1200; J1650; J1885; J1956; J2270; J2405; J2930; J7030; J7040; P9047; Q9967

== ENCOUNTER → 2018-08-21 | Outpatient (CLI) | payer MEDICARE ==
[~2018-08-21] MED LIST changes: +NORCO 325 MG-101 TAB PO
[2018-08-21 12:37] LABS: BASO # 0.1 (0.0-0.2); BASO % 0.5 % (0.0-2.0); EOS # 0.1 (0.0-0.7); EOS % 0.9 % (0-4.0); GRAN # 7.1 (1.4-6.5); GRAN % 67.8 % (42.2-75.2); HEMATOCRIT 41.2 % (37.0-47.0); HEMOGLOBIN 13.7 g/dl (12.5-16.0); LYMPH # 2.4 (1.2-3.4); LYMPH % 23.3 % (20.0-51.0); MEAN CELL VOLUME 88 fl (80.0-100.0); MEAN CORPUSCULAR HEMOGLOBIN 29 pg (27.0-31.0); MEAN CORPUSCULAR HGB CONC 33 g/dl (33.0-37.0); MONO # 0.8 (0.1-0.6); MONO % 7.2 % (1.7-9.3); PLATELET COUNT 291 K/mm3 (130-400); RED BLOOD COUNT 4.67 M/mm3 (4.10-5.30); REDCELL DISTRIBUTION WIDTH-CV 13.4 % (11.5-14.5)
[2018-08-21 12:51] LABS: ALBUMIN 4.5 gm/dL (3.5-5.0); BILIRUBIN,TOTAL 0.8 mg/dL (0.0-1.0); CREATININE, serum 0.74 mg/dL (0.52-1.25); POTASSIUM 3.8 mmol/L (3.4-5.0); TOTAL PROTEIN 8.1 gm/dL (6.4-8.2)
== END ==
LOC: COL.LAB 08-20 16:07
PROVIDERS: Family Medicine
DX: T62.91XA Toxic effect of unspecified noxious substance eaten as food, accidental (unintentional), initial encounter (principal); Z87.19 Personal history of other diseases of the digestive system

== ENCOUNTER 2018-11-16 20:33 | Inpatient (IN) | payer MEDICARE ==
[~2018-11-16] VITALS: Ht 160 cm; Wt 81.0 kg
[~2018-11-16 20:33] MED LIST changes: -B COMPLEX #11 TAB; +B COMPLEX #11 TAB PO
[2018-11-16 22:07] LABS: BASO # 0.1 (0.0-0.2); EOS # 0.2 (0.0-0.7); EOS % 2.1 % (0-4.0); GRAN # 4.6 (1.4-6.5); HEMATOCRIT 39.9 % (37.0-47.0); HEMOGLOBIN 13.5 g/dl (12.5-16.0); LYMPH # 2.7 (1.2-3.4); MEAN CELL VOLUME 89 fl (80.0-100.0); MEAN CORPUSCULAR HEMOGLOBIN 30 pg (27.0-31.0); MEAN CORPUSCULAR HGB CONC 34 g/dl (33.0-37.0); MEAN PLATELET VOLUME 10.8 fl (7.4-10.4); MONO # 0.6 (0.1-0.6); MONO % 7.8 % (1.7-9.3); PLATELET COUNT 257 K/mm3 (130-400); RED BLOOD COUNT 4.51 M/mm3 (4.10-5.30); REDCELL DISTRIBUTION WIDTH-CV 12.8 % (11.5-14.5)
[2018-11-16 22:18] LABS: ALANINE AMINOTRANSFERASE 69 U/L (9-52); ALBUMIN 4.5 gm/dL (3.5-5.0); ALKALINE PHOSPHATASE 132 U/L (50-136); AMYLASE 167 U/L (30-110); ANION GAP 7 mmol/L (7-16); AST,SGOT 58 U/L (15-37); BILIRUBIN,TOTAL 0.3 mg/dL (0.0-1.0); BLOOD UREA NITROGEN 15 mg/dL (7-17); CALCIUM 9.3 mg/dL (8.4-10.2); CARBON DIOXIDE 26 mmol/L (22-30); CHLORIDE 107 mmol/L (98-107); CREATININE, serum 0.88 mg/dL (0.52-1.25); GLUCOSE 88 mg/dL (74-106); LIPASE 427 U/L (23-300); POTASSIUM 3.9 mmol/L (3.4-5.0); SODIUM 141 mmol/L (137-145); TOTAL PROTEIN 7.9 gm/dL (6.4-8.2)
[2018-11-16] MEDS ORDERED: PAXIL40 MG PO (22:19)
[2018-11-16 22:24] LABS: C-REACTIVE PROTEIN < 0.5 mg/dL (0.0-0.9)
[2018-11-17] VITALS (7 sets, daily range): BP systolic 83–109; BP diastolic 38–55; PULSE 50–64; TEMP 97.8–98.4
--- NOTE | 2018-11-17 02:24 | NUR ---
Patient up to room by streacher from ER. Alert and oriented x3. Oriented to room. Initial and 5 page completed. Up to restroom, steady gait. States pain 5/10 to abdomen but tolerable. Denies further needs at this time.
[2018-11-17 02:52] LABS: PROTHROMBIN TIME 11.7 SECONDS (9.7-12.8)
[2018-11-17 02:55] LABS: ALCOHOL(ethanol),MEDICAL < 10 mg/dL; LACTATE DEHYDROGENASE 451 U/L (313-618); PHOSPHOROUS 3.4 mg/dL (2.5-4.5)
[2018-11-17 03:37] LABS: COLLECTION METHOD CLEAN CATCH
[2018-11-17 03:49] LABS: TRICYCLIC ANTIDEPRESS URINE NEGATIVE
[2018-11-17 03:55] LABS: PH 5 (5-8); SQUAMOUS EPITHELIAL 0-2 /hpf; URINE APPEARANCE Clear; URINE BACTERIA None Seen /hpf; URINE BILIRUBIN Negative (NEGATIVE); URINE BLOOD 1+ (NEGATIVE); URINE COLOR Yellow; URINE GLUCOSE Negative (NEGATIVE); URINE KETONE Negative (NEGATIVE); URINE LEUKOCYTE ESTERASE Negative (NEGATIVE); URINE NITRATE Negative (NEGATIVE); URINE PROTEIN(semi-quant) Negative (NEGATIVE); URINE RBC 0-2 /hpf; URINE UROBILINOGEN Negative (NEGATIVE)
--- NOTE | 2018-11-17 05:58 | NUR ---
Patient has rested well. Complained of nausea and pain this AM, Medications given per orders. Has been up to restroom, stand by assist. Denies further needs at this time. Will report off to day shift.
[2018-11-17 07:47] LABS: HEMATOCRIT 39.1 % (37.0-47.0); HEMOGLOBIN 13.1 g/dl (12.5-16.0); MEAN CELL VOLUME 89 fl (80.0-100.0); MEAN CORPUSCULAR HEMOGLOBIN 30 pg (27.0-31.0); MEAN CORPUSCULAR HGB CONC 34 g/dl (33.0-37.0); MEAN PLATELET VOLUME 11.5 fl (7.4-10.4); PLATELET COUNT 226 K/mm3 (130-400); REDCELL DISTRIBUTION WIDTH-CV 12.9 % (11.5-14.5)
[2018-11-17 07:55] LABS: ALBUMIN 3.8 gm/dL (3.5-5.0); BILIRUBIN,TOTAL 0.4 mg/dL (0.0-1.0); CALCIUM 8.5 mg/dL (8.4-10.2); CREATININE, serum 0.71 mg/dL (0.52-1.25); POTASSIUM 4.4 mmol/L (3.4-5.0)
[2018-11-17 08:13] LABS: BAND 4 % (0-10); LYMPHOCYTE 11 % (20.0-51.0); NEUTROPHILS 85 % (42.0-75.2)
[2018-11-17 08:14] LABS: PLATELET ESTIMATE NORMAL (NORMAL)
--- NOTE | 2018-11-17 09:49 | NUR ---
First visit from the relay motorman. No needs right now.
--- NOTE | 2018-11-17 14:24 | NUR ---
Plan: Rtn with Neftali Kraussavanahalex Micdelmy . Assess: PT indicated no concerns, denies any dme, care concerns, or med assist. Declines setting DPOA proxy. PCP Dr. Rodriguez, [facility]. Action: Nothing identified.
--- NOTE | 2018-11-17 18:00 | NUR ---
Patient has been resting most of the day. She has been tolerating the clear liquids well. Some nausea off and on during the day, no vomitting. She has been independent in the room. No other changes at this time. Call light within reach.
--- NOTE | 2018-11-18 02:10 | NUR ---
THE PT WAS BEDRESTING, VERBALIZED OF SURRENT AND PAST MEDICAL EVENTS. GOOD HISTORIAN. IV PATENT FOR FLUIDS B\P HAD RUN 80'S\40'S, LAST CHECKED 2352 WAS 91/54. THE PT GOT HERSELF UP TO THE BR, CAUTIONED THAT SHE NEEDS TO CALL FOR ASSISTANCE SHE IS AT RISK FOR FALL WITH LOW B\P'S - VERBALIZED UNDERSTANDING AND BED ALARMS ARE IN USE. SHE HAS A JELLO AND SPRITE ON HER BEDSIDE TABLE, FRESH CUP OF WATER FOR MEDS AND AFTER GIVEN. SHE HAD C\O PAIN, NORCO 1 GIVEN WITH GOOD EFFECT. APPEARS TO GET ADEQUATE SLEEP. SHE IS UP WITH A STEADY GAIT AND SBA TO CGA.
[2018-11-18 03:17] VITALS: BP 83/43; PULSE 47; TEMP 98.2
--- NOTE | 2018-11-18 04:30 | NUR ---
BEDRESTING WITH EYES CLOSED, RESP EVEN. HAD TURNED HERSELF TO THE LEFT SIDE. A[[EARS TO GET ADEQUATE SLEEP.
--- NOTE | 2018-11-18 06:13 | NUR ---
THE PT'S ACCUCHECK THIS AM WAS 102, SHE APPEARS TO HAVE NO OTHER LABS DUE THIS AM. SHE APPEARS TO GET ADEQUATE SLEEP.
[2018-11-18 07:54] LABS: BASO % 0.6 % (0.0-2.0); EOS # 0.1 (0.0-0.7); EOS % 1.2 % (0-4.0); GRAN % 55.3 % (42.2-75.2); HEMOGLOBIN 11.3 g/dl (12.5-16.0); LYMPH # 2.6 (1.2-3.4); LYMPH % 36.1 % (20.0-51.0); MEAN CELL VOLUME 91 fl (80.0-100.0); MEAN CORPUSCULAR HEMOGLOBIN 30 pg (27.0-31.0); MEAN CORPUSCULAR HGB CONC 32 g/dl (33.0-37.0); MEAN PLATELET VOLUME 11.7 fl (7.4-10.4); MONO # 0.5 (0.1-0.6); MONO % 6.5 % (1.7-9.3); PLATELET COUNT 210 K/mm3 (130-400); RED BLOOD COUNT 3.83 M/mm3 (4.10-5.30); REDCELL DISTRIBUTION WIDTH-CV 13.6 % (11.5-14.5)
[2018-11-18 08:02] LABS: ALBUMIN 2.9 gm/dL (3.5-5.0); BILIRUBIN,TOTAL 0.6 mg/dL (0.0-1.0); CALCIUM 7.9 mg/dL (8.4-10.2); CREATININE, serum 0.76 mg/dL (0.52-1.25); MAGNESIUM 1.9 mg/dL (1.6-2.3); POTASSIUM 3.6 mmol/L (3.4-5.0); TOTAL PROTEIN 5.7 gm/dL (6.4-8.2)
[2018-11-18 08:22] VITALS: BP 114/47; PULSE 56; TEMP 98.3
[2018-11-18 12:11] VITALS: BP 106/55; PULSE 57; TEMP 98.3
[2018-11-18 17:05] VITALS: BP 110/56; PULSE 58; TEMP 98.7
--- NOTE | 2018-11-18 18:00 | NUR ---
Patient seems to be doing well today. She has been using less pain medications. The norco seems to be controlling her pain. She has some nausea this am but none this afternoon. No other changes at this time. Call light within reach.
[2018-11-18 19:36] VITALS: BP 89/47; PULSE 52; TEMP 98.3
--- NOTE | 2018-11-18 21:50 | NUR ---
Pt. laying in bed. Pt. is A&OX3, assessment complete. IV to rt. ac patent, IV fluids infusing per orders. Pt. reports pain at a 7 on pain scale, gave pain medication per orders. Pt. denies further needs. Call light within reach.
[2018-11-18 23:14] VITALS: BP 113/62; PULSE 49; TEMP 98.2
[2018-11-19 05:07] VITALS: BP 84/56; PULSE 48; TEMP 98.2
--- NOTE | 2018-11-19 06:03 | NUR ---
Pt. slept well through the night. Pt. remains A&OX3. IV to rt. ac remains patent, IV fluids infusing per orders. Pt. given pain meds at 0500, see pain reassessment. Pt. denies further needs at this time. Call light within reach.
[2018-11-19 07:15] VITALS: BP 103/51; PULSE 48; TEMP 98.4
[2018-11-19 08:41] LABS: ALBUMIN 3.4 gm/dL (3.5-5.0); BILIRUBIN,TOTAL 0.5 mg/dL (0.0-1.0); CALCIUM 8.7 mg/dL (8.4-10.2); CREATININE, serum 0.77 mg/dL (0.52-1.25); MAGNESIUM 1.7 mg/dL (1.6-2.3); POTASSIUM 3.7 mmol/L (3.4-5.0); TOTAL PROTEIN 6.2 gm/dL (6.4-8.2)
[2018-11-19] MEDS ORDERED: ROXICODONE 55 MG/TAB PO (11:11)
[2018-11-19] MEDS ORDERED: ZOFRAN ODT4 MG PO (11:12)
--- NOTE | 2018-11-19 11:16 | NUR ---
Patient dc home today.
[2018-11-19 11:57] VITALS: BP 111/57; PULSE 46; TEMP 98.5
--- NOTE | 2018-11-19 13:03 | NUR ---
Discharge instructions reveiwed with patient and family, verbalized understanding. Discharged ambulatory to auto/home with family.
--- NOTE | 2018-11-19 14:31 | NUR ---
Follow up visit from the tap dancer. No needs right now.
== END 2018-11-19 13:10 | disposition home or self-care (01) | DRG 440 ==
LOC: COL.ER 20:33 → SURG 11-17 00:53
PROVIDERS: Emergency Medicine; Internal Medicine; Nurse Practitioner Family; ADMIT Family Medicine
DX: K85.90 Acute pancreatitis without necrosis or infection, unspecified (principal); K86.1 Other chronic pancreatitis; F31.9 Bipolar disorder, unspecified
CPT/HCPCS: OP; 99222-AI; 99232-AI; 99239; C9113; J1170; J1200; J1650; J2405; J2550; J2930; J7030; Q9967

== ENCOUNTER 2018-11-27 18:15 | Emergency (ER) | payer MEDICARE ==
[~2018-11-27] VITALS: Ht 160 cm; Wt 73.6 kg
[2018-11-27 18:21] VITALS: TEMP 99.2
[2018-11-27 20:43] VITALS: BP 113/70; PULSE 74
== END 2018-11-27 20:43 | disposition short-term general hospital (02) ==
LOC: COL.ER 18:15
DX: K85.90 Acute pancreatitis without necrosis or infection, unspecified (principal)
CPT/HCPCS: J1170; J2405; J7030

== ENCOUNTER → 2018-11-27 | Outpatient (CLI) | payer MEDICARE ==
[~2018-11-27] MED LIST changes: +ROXICODONE 55 MG/TAB PO
[2018-11-27 13:07] LABS: BASO # 0.1 (0.0-0.2); EOS # 0.1 (0.0-0.7); EOS % 1.5 % (0-4.0); GRAN # 4.6 (1.4-6.5); GRAN % 59.2 % (42.2-75.2); HEMATOCRIT 41.2 % (37.0-47.0); HEMOGLOBIN 13.7 g/dl (12.5-16.0); LYMPH # 2.4 (1.2-3.4); LYMPH % 30.2 % (20.0-51.0); MEAN CELL VOLUME 89 fl (80.0-100.0); MEAN CORPUSCULAR HEMOGLOBIN 30 pg (27.0-31.0); MEAN CORPUSCULAR HGB CONC 33 g/dl (33.0-37.0); MEAN PLATELET VOLUME 10.7 fl (7.4-10.4); MONO # 0.6 (0.1-0.6); MONO % 7.8 % (1.7-9.3); PLATELET COUNT 261 K/mm3 (130-400); RED BLOOD COUNT 4.61 M/mm3 (4.10-5.30); REDCELL DISTRIBUTION WIDTH-CV 13.2 % (11.5-14.5)
[2018-11-27 13:20] LABS: ALBUMIN 4.4 gm/dL (3.5-5.0); BILIRUBIN,TOTAL 0.5 mg/dL (0.0-1.0); CALCIUM 9.3 mg/dL (8.4-10.2); CREATININE, serum 0.85 mg/dL (0.52-1.25); TOTAL PROTEIN 7.9 gm/dL (6.4-8.2)
== END ==
LOC: COL.LAB 12:39
PROVIDERS: Family Medicine
DX: Z87.19 Personal history of other diseases of the digestive system (principal)

== ENCOUNTER 2024-05-14 22:37 | Inpatient (IN) | payer OTHER ==
[~2024-05-14] VITALS: Ht 162.6 cm; Wt 75.2 kg
[2024-05-14] MEDS ORDERED: Ondansetron 4 MG/2 ML VIAL IV ONE (23:45)
[2024-05-14] MEDS ORDERED: HYDROmorphone 0.5 MG/0.5 ML SYRINGE IV ONE (23:45)
[2024-05-14] MEDS ORDERED: NS 1,000 ML IV ONE (23:45)
[2024-05-14 23:56] LABS: BASO # 0.1 K/mm3 (0.0-0.2); BASO % 0.7 % (0.0-2.0); EOS # 0.1 K/mm3 (0.0-0.7); GRAN # 10.6 K/mm3 (1.4-6.5); GRAN % 81.9 % (42.2-75.2); HEMATOCRIT 40.8 % (37.0-47.0); LYMPH # 1.5 K/mm3 (1.2-3.4); LYMPH % 11.4 % (20.0-51.0); MEAN CELL VOLUME 94 fl (80.0-100.0); MEAN CORPUSCULAR HEMOGLOBIN 32 pg (27-31); MEAN CORPUSCULAR HGB CONC 34 g/dl (33.0-37.0); MEAN PLATELET VOLUME 10.9 fl (7.4-10.4); MONO # 0.6 K/mm3 (0.1-0.6); MONO % 4.7 % (1.7-9.3); PLATELET COUNT 317 K/mm3 (130-400); RED BLOOD COUNT 4.36 M/mm3 (4.10-5.30); REDCELL DISTRIBUTION WIDTH-CV 13.4 % (11.5-14.5)
[2024-05-15] VITALS (9 sets, daily range): BP systolic 91–116; BP diastolic 51–71; PULSE 50–62; TEMP 97.8–98.5
[2024-05-15 00:22] LABS: ALANINE AMINOTRANSFERASE 101 U/L (0-55); ALBUMIN 4.4 g/dL (3.5-5.0); ALKALINE PHOSPHATASE 171 U/L (40-150); ANION GAP 11 mmol/L (7-16); AST,SGOT 49 U/L (5-34); BILIRUBIN,TOTAL 0.5 mg/dL (0.2-1.2); BLOOD UREA NITROGEN 11 mg/dL (10-20); C-REACTIVE PROTEIN 0.18 mg/dL (0.00-0.50); CHLORIDE 109 mEq/L (98-107); CREATININE, serum 0.93 mg/dL (0.57-1.11); GLUCOSE 115 mg/dL (70-99); POTASSIUM 4.2 mEq/L (3.5-4.5); SODIUM 141 mEq/L (136-145); TOTAL PROTEIN 7.8 g/dl (6.2-8.1)
[2024-05-15 00:23] LABS: LIPASE < 7 U/L (8-78)
[2024-05-15] MEDS ORDERED: methylPREDNISolone Sod Succ 125 MG/2 ML VIAL IV ONE (00:30)
[2024-05-15] MEDS ORDERED: diphenhydrAMINE 50 MG/ML 1 ML VIAL IV ONE (00:30)
[2024-05-15 00:54] LABS: COLLECTION METHOD CLEAN CATCH
[2024-05-15] MEDS ORDERED: Iohexol 300 - 100 ML VIAL IV ONE (00:59)
[2024-05-15] MEDS ORDERED: NS 50 ML IV SCH (01:00)
[2024-05-15 01:05] LABS: URINE APPEARANCE CLEAR (CLEAR/HAZY); URINE BLOOD 1+ (NEGATIVE); URINE COLOR YELLOW (YELLOW); URINE GLUCOSE NEGATIVE (NEGATIVE); URINE KETONE NEGATIVE (NEGATIVE); URINE NITRATE NEGATIVE (NEGATIVE); URINE PROTEIN(semi-quant) NEGATIVE (NEGATIVE); URINE UROBILINOGEN 0.2 E.U/dL (0.2-1.0)
[2024-05-15] MEDS ORDERED: HYDROmorphone 0.5 MG/0.5 ML SYRINGE IV ONE (02:15)
[2024-05-15] MEDS ORDERED: Ondansetron 4 MG/2 ML VIAL IV PRN (03:00)
[2024-05-15] MEDS ORDERED: LR 1,000 ML IV SCH (03:00)
[2024-05-15] MEDS ORDERED: Morphine 4 MG/ML VIAL IV PRN (03:00)
[2024-05-15] MEDS ORDERED: Patient's Own Medication Item PO PRN (04:15)
[2024-05-15] MEDS ORDERED: PROZAC 20MG20 MG PO (04:21)
[2024-05-15] MEDS ORDERED: ZYRTEC 10MG10 MG PO (04:22)
[2024-05-15] MEDS ORDERED: PEPCID 20MG TAB20 MG PO (04:22)
[2024-05-15] MEDS ORDERED: PROTONIX 40MG T40 MG PO (04:23)
[2024-05-15] MEDS ORDERED: BENTYL 20MG20 MG/TAB PO (04:24)
[2024-05-15] MEDS ORDERED: D3-5050000 IU PO (04:26)
--- NOTE | 2024-05-15 06:29 | NUR ---
Patient arrived to surgical unit from ER at approximately 0400. Alert and oriented, and able to make needs known. Peripheral IV to right AC, started IV fluids per orders. Given PRN Morphine for pain as requested, as well as PRN Zofran for nausea. Aware of plan to be NPO. Sugical consult called to Dr. Valentine who was already aware of consult. Patient voices no further questions, needs, or concerns at this time. In bed with call light within reach.
[2024-05-15] MEDS ORDERED: Patient's Own Medication Item PO SCH (08:00)
[2024-05-15] MEDS ORDERED: Heparin 5,000 UNITS/ML 1 ML VIAL SQ SCH (08:00)
--- NOTE | 2024-05-15 08:30 | NUR ---
Pt. sitting up in bed. Pt. is A&OX3, assessment complete. IV to rt. ac patent, IV fluids infusing per orders. Pt. reports pain to abd at a 4 on pain scale at this time. Pt. denies further needs, call light within reach.
[2024-05-15] MEDS ORDERED: Pantoprazole 40 MG in NS 10 ML IV SCH (09:00)
[2024-05-15] MEDS ORDERED: Montelukast 10 MG TAB PO SCH (09:00)
[2024-05-15] MEDS ORDERED: PARoxetine HCL 10 MG TABLET PO SCH (09:00)
--- NOTE | 2024-05-15 09:21 | NUR ---
ALFREDO met with patient to complete initial assessment for discharge planning, Patient verified that she lives in [place] with her Shalonda ([phone]). Her PCP is Dr. Hernandez in [facility] and she uses [facility] pharmacy in [place]. Patient denies using any DME. She states she has a living will that designates her as DPOA. Patient is covered by [facility] policy and has [place] medicaid. she states she has tried to get this transferred to [place] Medicaid since moving to [place] in March but has not been successful. ALFREDO sent email to [facility] to request they visit with patient to assist with Medicaid application. Patient plans to discharge to home. Discharge plan: Home
--- NOTE | 2024-05-15 10:55 | NUR ---
Initial visit; Patient thanked Production Assembler for looking in on her and offering God's blessings and to keep her in Production Assembler's prayers.
[2024-05-15] MEDS ORDERED: HYDROmorphone 0.5 MG/0.5 ML SYRINGE IV PRN (11:15)
--- NOTE | 2024-05-15 19:29 | NUR ---
Patient assessed at 1910. Alert and oriented, and able to make needs known. Reports level 7 pain to abdomen. Goal is 3. Given PRN Dilaudid as requested for pain. Complained of some nausea, and too soon to give PRN Zofran. This nurse stated that if she is still having nausea that we should back down to NPO for a while rather than CL. Patient stated that it wasn't really nausea, but more like gas bubbles, and that she was sipping on sprite to help her belch which seemed to be helping. Peripheral IV to right AC with IV fluids running per orders. Denies SOB and dypsnea. LS CTA. HRR. BS hypoactive. Patient reports she is not passing gas but she did have a liquid stool this morning. No edema. Voices no questions, needs, or concerns at this time. In bed with call light within reach.
[2024-05-15] MEDS ORDERED: ARIPiprazole 10 MG TAB PO SCH (21:00)
[2024-05-16] VITALS (11 sets, daily range): BP systolic 90–116; BP diastolic 52–69; PULSE 54–80; TEMP 98–98.7
--- NOTE | 2024-05-16 05:58 | NUR ---
Patient has received PRN Dilaudid about every 2 hours for pain during the night, as well as Zofran every 6 hours for nausea. Reports she had 4 small, liquid stools that started as brown, and is now green. Voices no questions, needs, or concerns at this time. In bed with call light within reach.
[2024-05-16 07:04] LABS: BASO # 0.1 K/mm3 (0.0-0.2); BASO % 0.9 % (0.0-2.0); EOS # 0.1 K/mm3 (0.0-0.7); EOS % 1.7 % (0.0-4.0); GRAN # 2.9 K/mm3 (1.4-6.5); GRAN % 50.9 % (42.2-75.2); LYMPH # 2.2 K/mm3 (1.2-3.4); LYMPH % 38.3 % (20.0-51.0); MEAN CELL VOLUME 94 fl (80.0-100.0); MEAN CORPUSCULAR HGB CONC 33 g/dl (33.0-37.0); MEAN PLATELET VOLUME 10.9 fl (7.4-10.4); MONO # 0.5 K/mm3 (0.1-0.6); PLATELET COUNT 229 K/mm3 (130-400); RED BLOOD COUNT 3.63 M/mm3 (4.10-5.30); REDCELL DISTRIBUTION WIDTH-CV 13.2 % (11.5-14.5)
[2024-05-16 07:25] LABS: HEMATOCRIT 34.1 % (37.0-47.0); HEMOGLOBIN 11.4 g/dl (12.5-16.0); MEAN CORPUSCULAR HEMOGLOBIN 31 pg (27-31)
[2024-05-16 07:28] LABS: CREATININE, serum 0.78 mg/dL (0.57-1.11); POTASSIUM 3.5 mEq/L (3.5-4.5)
--- NOTE | 2024-05-16 08:30 | NUR ---
SHIFT ASSESSMENT COMPLETE. VSS. PATIENT RESTING IN BED. PATIENT STATES PAIN 8/10 PAIN MEDS GIVEN PER ORDERS. ALL MORNING MEDS GIVEN PER ORDERS. PATIENT HAS NO OTHER REQUEST AT THIS TIME. CALL LIGHT IN REACH
[2024-05-16] MEDS ORDERED: FLUoxetine 20 MG CAP PO SCH (09:00)
[2024-05-16] MEDS ORDERED: HYDROmorphone 2 MG TAB PO PRN (10:45)
--- NOTE | 2024-05-16 15:01 | NUR ---
D: Planishing Hammer Operator stopped by room on rounds. A: Pt was resting and content. Pt has no needs right now. P: Planishing Hammer Operator informed pt that if she needed anything from the physical education instructor area to let her nurse know. Planishing Hammer Operator will follow up as needed.
--- NOTE | 2024-05-16 19:20 | NUR ---
Shift report given to JOHN Park. Pt. given pain meds per need, see charting. Pt. denies further needs, call light within reach.
--- NOTE | 2024-05-16 22:30 | NUR ---
Patient resting in bed. Rates her pain at 8/10 in her abd mainly on her left side, prn pain meds given. Needs met. Assessment complete. IV in right AC flushes easily without complications. Call light and persoanl items in reach. Bed in low position.
[2024-05-17] MEDS ORDERED: Acetaminophen 325 MG TAB PO PRN (00:45)
[2024-05-17 01:39] VITALS: BP_SYST 99
[2024-05-17 03:20] VITALS: BP 102/43; PULSE 60; TEMP 98
[2024-05-17 05:46] VITALS: BP 104/54; PULSE 55
[2024-05-17 07:00] LABS: BASO # 0.1 K/mm3 (0.0-0.2); BASO % 1.1 % (0.0-2.0); EOS # 0.1 K/mm3 (0.0-0.7); EOS % 1.8 % (0.0-4.0); GRAN # 2.9 K/mm3 (1.4-6.5); GRAN % 53.7 % (42.2-75.2); HEMATOCRIT 38.2 % (37.0-47.0); HEMOGLOBIN 12.9 g/dl (12.5-16.0); LYMPH # 1.9 K/mm3 (1.2-3.4); LYMPH % 33.9 % (20.0-51.0); MEAN CELL VOLUME 92 fl (80.0-100.0); MEAN CORPUSCULAR HEMOGLOBIN 31 pg (27-31); MEAN CORPUSCULAR HGB CONC 34 g/dl (33.0-37.0); MEAN PLATELET VOLUME 11.7 fl (7.4-10.4); MONO # 0.5 K/mm3 (0.1-0.6); MONO % 9.3 % (1.7-9.3); PLATELET COUNT 249 K/mm3 (130-400); RED BLOOD COUNT 4.14 M/mm3 (4.10-5.30); REDCELL DISTRIBUTION WIDTH-CV 12.7 % (11.5-14.5)
[2024-05-17 08:00] VITALS: BP 96/47; PULSE 53; TEMP 98
--- NOTE | 2024-05-17 08:00 | NUR ---
Patient sleeping in bed, easily awakens with verbal command. A&Ox4. VSS. IV CDI. Pain medication given by prior nurse. No further needs expressed. Call light within reach
[2024-05-17 08:29] LABS: CALCIUM 9.7 mg/dL (8.4-10.2); CREATININE, serum 0.81 mg/dL (0.57-1.11); POTASSIUM 3.8 mEq/L (3.5-4.5)
[2024-05-17] MEDS ORDERED: ZOFRAN ODT4 MG PO (08:46)
[2024-05-17] MEDS ORDERED: DILAUDID 2MG TAB2 MG PO (08:56)
--- NOTE | 2024-05-17 11:06 | NUR ---
Discharge paperwork reviewed with the patient. Patient verbalized an understanding to follow doctors orders. Iv removed, tip intact. Gauze and coban applied. Patient taken by wheelchair to awaiting vehicle.
== END 2024-05-17 11:10 | disposition home or self-care (01) | DRG 389 ==
LOC: COL.ER 22:37 → SURG 05-15 03:06
PROVIDERS: Nurse Practitioner; ADMIT Internal Medicine
DX: K56.600 Partial intestinal obstruction, unspecified as to cause (principal); K86.1 Other chronic pancreatitis; F31.9 Bipolar disorder, unspecified; K21.9 Gastro-esophageal reflux disease without esophagitis; J30.2 Other seasonal allergic rhinitis; Z90.49 Acquired absence of other specified parts of digestive tract; Z90.710 Acquired absence of both cervix and uterus; Z88.5 Allergy status to narcotic agent; Z88.2 Allergy status to sulfonamides; Z88.8 Allergy status to other drugs, medicaments and biological substances; Z88.6 Allergy status to analgesic agent; Z91.041 Radiographic dye allergy status; Z79.899 Other long term (current) drug therapy
CPT/HCPCS: C9113; J1170; J1200; J1644; J2270; J2405; J2919; J7030; J7120; Q9967

== ENCOUNTER 2024-06-13 08:40 | Emergency (ER) | payer OTHER ==
[~2024-06-13] VITALS: Ht 160 cm; Wt 71.8 kg
[~2024-06-13 08:40] MED LIST changes: +BENTYL 20MG20 MG/TAB PO; +D3-5050000 IU PO; +PEPCID 20MG TAB20 MG PO; +PROZAC 20MG20 MG PO; +ZYRTEC 10MG10 MG PO
[2024-06-13 08:49] VITALS: TEMP 97.3
[2024-06-13] MEDS ORDERED: NS 1,000 ML IV ONE (09:30)
[2024-06-13 09:38] LABS: COLLECTION METHOD CLEAN CATCH
[2024-06-13 09:44] LABS: URINE APPEARANCE CLEAR (CLEAR/HAZY); URINE BLOOD NEGATIVE (NEGATIVE); URINE COLOR YELLOW (YELLOW); URINE GLUCOSE NEGATIVE (NEGATIVE); URINE KETONE NEGATIVE (NEGATIVE); URINE NITRATE NEGATIVE (NEGATIVE); URINE PROTEIN(semi-quant) NEGATIVE (NEGATIVE); URINE UROBILINOGEN 0.2 E.U/dL (0.2-1.0)
[2024-06-13] MEDS ORDERED: Ondansetron 4 MG/2 ML VIAL IV ONE (09:45)
[2024-06-13] MEDS ORDERED: Morphine 4 MG/ML VIAL IV ONE ×2 (09:45→12:30)
[2024-06-13] MEDS ORDERED: diphenhydrAMINE 50 MG/ML 1 ML VIAL IV ONE (10:00)
[2024-06-13] MEDS ORDERED: methylPREDNISolone Sod Succ 125 MG/2 ML VIAL IV ONE (10:00)
[2024-06-13 10:20] LABS: BASO # 0.1 K/mm3 (0.0-0.2); BASO % 0.7 % (0.0-2.0); EOS # 0.2 K/mm3 (0.0-0.7); EOS % 2.5 % (0.0-4.0); GRAN # 5.9 K/mm3 (1.4-6.5); GRAN % 68.6 % (42.2-75.2); HEMATOCRIT 40.8 % (37.0-47.0); HEMOGLOBIN 13.5 g/dl (12.5-16.0); LYMPH # 1.9 K/mm3 (1.2-3.4); LYMPH % 21.9 % (20.0-51.0); MEAN CELL VOLUME 97 fl (80.0-100.0); MEAN CORPUSCULAR HEMOGLOBIN 32 pg (27-31); MEAN CORPUSCULAR HGB CONC 33 g/dl (33.0-37.0); MEAN PLATELET VOLUME 11.4 fl (7.4-10.4); MONO # 0.5 K/mm3 (0.1-0.6); MONO % 6.1 % (1.7-9.3); PLATELET COUNT 267 K/mm3 (130-400); REDCELL DISTRIBUTION WIDTH-CV 12.5 % (11.5-14.5)
[2024-06-13 10:32] LABS: ALBUMIN 4.4 g/dL (3.5-5.0); BILIRUBIN,TOTAL 0.4 mg/dL (0.2-1.2); CALCIUM 9.3 mg/dL (8.4-10.2); CREATININE, serum 0.92 mg/dL (0.57-1.11); TOTAL PROTEIN 7.5 g/dl (6.2-8.1)
[2024-06-13] MEDS ORDERED: NS 100 ML IV SCH (11:03)
[2024-06-13] MEDS ORDERED: Iohexol 300 - 100 ML VIAL IV ONE (11:03)
[2024-06-13] MEDS ORDERED: ZOFRAN ODT4 MG PO (12:16)
[2024-06-13] MEDS ORDERED: NORCO 325 MG-51 TAB PO (12:16)
[2024-06-13 12:40] VITALS: BP 119/58; PULSE 60
== END 2024-06-13 12:40 | disposition home or self-care (01) ==
LOC: COL.ER 08:40
PROVIDERS: Family Medicine
DX: R10.9 Unspecified abdominal pain (principal)
CPT/HCPCS: J1200; J2270; J2405; J2919; J7030; Q9967

== ENCOUNTER 2024-07-04 11:20 | Emergency (ER) | payer OTHER ==
[~2024-07-04] VITALS: Ht 160 cm; Wt 72.7 kg
[2024-07-04 11:31] VITALS: TEMP 99
[2024-07-04] MEDS ORDERED: Ondansetron 4 MG/2 ML VIAL IV ONE (12:00)
[2024-07-04] MEDS ORDERED: HYDROmorphone 0.5 MG/0.5 ML SYRINGE IV ONE ×2 (12:00→14:45)
[2024-07-04] MEDS ORDERED: NS 1,000 ML IV ONE (12:00)
[2024-07-04 12:37] LABS: BASO # 0.1 K/mm3 (0.0-0.2); BASO % 1.6 % (0.0-2.0); EOS # 0.1 K/mm3 (0.0-0.7); EOS % 1.7 % (0.0-4.0); GRAN # 3.4 K/mm3 (1.4-6.5); GRAN % 58.9 % (42.2-75.2); HEMATOCRIT 38.9 % (37.0-47.0); HEMOGLOBIN 12.8 g/dl (12.5-16.0); LYMPH # 1.8 K/mm3 (1.2-3.4); LYMPH % 31.5 % (20.0-51.0); MEAN CELL VOLUME 95 fl (80.0-100.0); MEAN CORPUSCULAR HEMOGLOBIN 31 pg (27-31); MEAN CORPUSCULAR HGB CONC 33 g/dl (33.0-37.0); MONO # 0.4 K/mm3 (0.1-0.6); MONO % 6.1 % (1.7-9.3); PLATELET COUNT 284 K/mm3 (130-400); RED BLOOD COUNT 4.08 M/mm3 (4.10-5.30); REDCELL DISTRIBUTION WIDTH-CV 12.4 % (11.5-14.5)
[2024-07-04] MEDS ORDERED: methylPREDNISolone Sod Succ 125 MG/2 ML VIAL IV ONE (13:00)
[2024-07-04] MEDS ORDERED: diphenhydrAMINE 50 MG/ML 1 ML VIAL IV ONE (13:00)
[2024-07-04 13:58] LABS: ALBUMIN 4.3 g/dL (3.5-5.0); BILIRUBIN,TOTAL 0.4 mg/dL (0.2-1.2); C-REACTIVE PROTEIN 0.11 mg/dL (0.00-0.50); CALCIUM 9.2 mg/dL (8.4-10.2); CREATININE, serum 0.81 mg/dL (0.57-1.11); POTASSIUM 4.1 mEq/L (3.5-4.5); TOTAL PROTEIN 7.2 g/dl (6.2-8.1)
[2024-07-04] MEDS ORDERED: NS 100 ML IV SCH (13:58)
[2024-07-04] MEDS ORDERED: Iohexol 300 - 100 ML VIAL IV ONE (13:59)
[2024-07-04] MEDS ORDERED: PERCOCET 325 MG1 TA2 PO (14:46)
[2024-07-04 15:11] VITALS: BP 107/55; PULSE 52
== END 2024-07-04 15:16 | disposition home or self-care (01) ==
LOC: COL.ER 11:20
PROVIDERS: Emergency Medicine
DX: R10.13 Epigastric pain (principal); R11.0 Nausea; R19.7 Diarrhea, unspecified
CPT/HCPCS: J1170; J1200; J2405; J2919; J7030; Q9967

== ENCOUNTER 2024-08-01 15:31 | Emergency (ER) | payer OTHER ==
[~2024-08-01] VITALS: Ht 160 cm; Wt 73.2 kg
[2024-08-01 15:44] VITALS: TEMP 98.4
[2024-08-01] MEDS ORDERED: NS 1,000 ML IV ONE (16:15)
[2024-08-01] MEDS ORDERED: Morphine 4 MG/ML VIAL IV ONE (16:15)
[2024-08-01] MEDS ORDERED: Ondansetron 4 MG/2 ML VIAL IV ONE (16:15)
[2024-08-01 16:51] LABS: BASO # 0.1 K/mm3 (0.0-0.2); BASO % 0.8 % (0.0-2.0); EOS # 0.1 K/mm3 (0.0-0.7); EOS % 1.7 % (0.0-4.0); GRAN # 5.8 K/mm3 (1.4-6.5); GRAN % 69.4 % (42.2-75.2); HEMOGLOBIN 13.3 g/dl (12.5-16.0); LYMPH # 1.8 K/mm3 (1.2-3.4); LYMPH % 21.2 % (20.0-51.0); MEAN CELL VOLUME 97 fl (80.0-100.0); MEAN CORPUSCULAR HEMOGLOBIN 31 pg (27-31); MEAN CORPUSCULAR HGB CONC 32 g/dl (33.0-37.0); MEAN PLATELET VOLUME 11.1 fl (7.4-10.4); MONO # 0.6 K/mm3 (0.1-0.6); MONO % 6.7 % (1.7-9.3); PLATELET COUNT 224 K/mm3 (130-400); RED BLOOD COUNT 4.25 M/mm3 (4.10-5.30); REDCELL DISTRIBUTION WIDTH-CV 12.2 % (11.5-14.5)
[2024-08-01 16:54] LABS: COLLECTION METHOD CLEAN CATCH
[2024-08-01 16:57] LABS: URINE APPEARANCE CLEAR (CLEAR/HAZY); URINE BLOOD NEGATIVE (NEGATIVE); URINE COLOR YELLOW (YELLOW); URINE GLUCOSE NEGATIVE (NEGATIVE); URINE KETONE NEGATIVE (NEGATIVE); URINE NITRATE NEGATIVE (NEGATIVE); URINE PROTEIN(semi-quant) NEGATIVE (NEGATIVE); URINE UROBILINOGEN 0.2 E.U/dL (0.2-1.0)
[2024-08-01 17:16] LABS: ALBUMIN 4.4 g/dL (3.5-5.0); BILIRUBIN,TOTAL 0.8 mg/dL (0.2-1.2); CALCIUM 9.7 mg/dL (8.4-10.2); CREATININE, serum 0.88 mg/dL (0.57-1.11); POTASSIUM 4.2 mEq/L (3.5-4.5); TOTAL PROTEIN 7.5 g/dl (6.2-8.1)
[2024-08-01] MEDS ORDERED: methylPREDNISolone Sod Succ 125 MG/2 ML VIAL IV ONE (17:30)
[2024-08-01] MEDS ORDERED: diphenhydrAMINE 50 MG/ML 1 ML VIAL IV ONE (17:30)
[2024-08-01] MEDS ORDERED: NS 50 ML IV SCH (18:03)
[2024-08-01] MEDS ORDERED: Iohexol 300 - 100 ML VIAL IV ONE (18:03)
[2024-08-01] MEDS ORDERED: ZOFRAN ODT4 MG PO (18:55)
[2024-08-01] MEDS ORDERED: NORCO 325 MG-51 TAB PO (18:55)
[2024-08-01] MEDS ORDERED: Home HYDROcodone/Acetaminophen 5/325 MG #4 TABS/PACK PO ONE (19:00)
[2024-08-01] MEDS ORDERED: Home Ondansetron ODT 4 MG #2 ODT/PACK PO ONE (19:00)
[2024-08-01 19:17] VITALS: BP 121/72; PULSE 59
== END 2024-08-01 19:25 | disposition home or self-care (01) ==
LOC: COL.ER 15:31
PROVIDERS: Physician Assistant
DX: R10.12 Left upper quadrant pain (principal); R11.2 Nausea with vomiting, unspecified
CPT/HCPCS: J1200; J2270; J2405; J2919; J7030; Q9967

== ENCOUNTER 2024-09-02 13:10 | Emergency (ER) | payer OTHER, MEDICAID ==
[~2024-09-02] VITALS: Ht 160 cm; Wt 75.0 kg
[2024-09-02 13:22] VITALS: TEMP 98.6
[2024-09-02] MEDS ORDERED: Morphine 4 MG/ML VIAL IV ONE (15:30)
[2024-09-02] MEDS ORDERED: Ondansetron 4 MG/2 ML VIAL IV ONE (15:30)
[2024-09-02 15:49] LABS: COLLECTION METHOD CLEAN CATCH
[2024-09-02 15:51] LABS: BASO # 0.1 K/mm3 (0.0-0.2); BASO % 0.6 % (0.0-2.0); EOS # 0.1 K/mm3 (0.0-0.7); EOS % 0.8 % (0.0-4.0); GRAN # 5.9 K/mm3 (1.4-6.5); GRAN % 71.5 % (42.2-75.2); HEMATOCRIT 41.8 % (37.0-47.0); HEMOGLOBIN 14.2 g/dl (12.5-16.0); LYMPH # 1.8 K/mm3 (1.2-3.4); MEAN CELL VOLUME 92 fl (80.0-100.0); MEAN CORPUSCULAR HEMOGLOBIN 31 pg (27-31); MEAN CORPUSCULAR HGB CONC 34 g/dl (33.0-37.0); MEAN PLATELET VOLUME 10.8 fl (7.4-10.4); MONO # 0.5 K/mm3 (0.1-0.6); MONO % 6.1 % (1.7-9.3); PLATELET COUNT 296 K/mm3 (130-400); RED BLOOD COUNT 4.55 M/mm3 (4.10-5.30)
[2024-09-02 15:57] LABS: URINE APPEARANCE CLEAR (CLEAR/HAZY); URINE BLOOD TRACE (NEGATIVE); URINE COLOR YELLOW (YELLOW); URINE GLUCOSE NEGATIVE (NEGATIVE); URINE KETONE NEGATIVE (NEGATIVE); URINE NITRATE NEGATIVE (NEGATIVE); URINE PROTEIN(semi-quant) NEGATIVE (NEGATIVE); URINE UROBILINOGEN 0.2 E.U/dL (0.2-1.0)
[2024-09-02 16:00] VITALS: BP 97/55
[2024-09-02 16:09] LABS: ALBUMIN 4.6 g/dL (3.5-5.0); BILIRUBIN,TOTAL 0.5 mg/dL (0.2-1.2); C-REACTIVE PROTEIN 0.19 mg/dL (0.00-0.50); CALCIUM 10.2 mg/dL (8.4-10.2); CREATININE, serum 0.86 mg/dL (0.57-1.11); POTASSIUM 3.6 mEq/L (3.5-4.5); TOTAL PROTEIN 8.1 g/dl (6.2-8.1)
[2024-09-02] MEDS ORDERED: diphenhydrAMINE 50 MG/ML 1 ML VIAL IV ONE (16:15)
[2024-09-02] MEDS ORDERED: methylPREDNISolone Sod Succ 125 MG/2 ML VIAL IV ONE (16:15)
[2024-09-02] MEDS ORDERED: NS 100 ML IV SCH (16:59)
[2024-09-02] MEDS ORDERED: Iohexol 300 - 100 ML VIAL IV ONE (17:00)
[2024-09-02 18:25] VITALS: PULSE 79
== END 2024-09-02 18:25 | disposition home or self-care (01) ==
LOC: COL.ER 13:10
PROVIDERS: Emergency Medicine
DX: R10.12 Left upper quadrant pain (principal); R11.2 Nausea with vomiting, unspecified
CPT/HCPCS: J1200; J2270; J2405; J2919; Q9967